=== PATIENT | male | born 1970 | race Caucasian/White ===

== ENCOUNTER → 2018-03-06 | Outpatient (CLI) | payer BC ==
[2018-03-06 12:28] LABS: BASOPHILS % 2.7 % (0.0-2.0); CHLORIDE 103 mEq/L (98-107); EOSINOPHILS % 3.1 % (0.0-5.0); HEMOGLOBIN. 15.1 g/dL (14.0-18.0); LYMPHOCYTES % 21.6 % (20.0-50.0); MEAN CORPUSCULAR HEMOGLOBIN 31.7 pg (28.0-32.0); MEAN CORPUSCULAR VOLUME 92.6 fL (80.0-94.0); MEAN PLATELET VOLUME 8.2 fl (7.4-10.4); MONOCYTES % 8.9 % (2.0-8.0); NEUTROPHILS % 63.7 % (40.0-76.0); PLATELET 368 x1000/uL (130-400); RED BLOOD CELL COUNT 4.76 mill/uL (4.7-6.1); RED CELL DISTRIBUTION WIDTH 12.6 % (11.6-14.6)
[2018-03-06 12:34] LABS: LDL CHOLESTEROL 70 mg/dL (5-100)
[2018-03-06 12:35] LABS: HDL CHOLESTEROL 84 mg/dL (40-59)
[2018-03-06 12:39] LABS: T4 FREE 0.87 ng/dL (0.76-1.46)
[2018-03-06 12:40] LABS: TOTAL IRON BINDING CAPACITY 345 ug/dL (250-450)
[2018-03-06 12:46] LABS: PROSTRATE SPECIFIC AG TOTAL 1.09 ng/mL (0.0-4.0)
[2018-03-06 12:47] LABS: CARCINO EMBRYONIC ANTIGEN 1.6 ng/ml; TRIOIODOTHYRONINE TOTAL 0.95 ng/ml (0.60-1.81)
[2018-03-06 14:10] LABS: FOLIC ACID (FOLATE) SERUM 15.5 ng/mL (>5.38)
[2018-03-07 08:22] LABS: ALPHA FETOPROTEIN TUMOR MARKER 1.2 ng/mL (0.0-8.3); VITAMIN D 25-OH 35.6 ng/mL (30.0-100.0)
== END | disposition home or self-care (01) ==
LOC: LAB 11:41
PROVIDERS: ATTEND Family Medicine Adult Medicine
DX: Z00.01 Encounter for general adult medical examination with abnormal findings (principal); R79.89 Other specified abnormal findings of blood chemistry; Z87.891 Personal history of nicotine dependence
CPT/HCPCS: 36415; 71045; 80053; 80061; 82105; 82306; 82378; 82607; 82728; 82746; 83036; 83540; 83550; 83735; 84153; 84439; 84443; 84480; 85025